=== PATIENT | male | born 1940 | race Caucasian/White ===

== ENCOUNTER 2021-01-06 05:03 | Emergency (ER) | payer OTHER ==
[2021-01-06 05:28] VITALS: BMI 31.6
[2021-01-06 06:46] LABS: HEMOGLOBIN 15.9 GM/dL (11.7-16.9); MCH 28.3 pg (25.7-33.7); MCHC 33.2 g/dl (32.0-35.9); MEAN CELL VOLUME 85.2 fl (80-96); MEAN PLT VOLUME 8.2 fl (7.5-11.1); PLATELET COUNT 149 10^3/uL (134-434); RBC 5.64 M/mm3 (4.00-5.60); RDW 15.4 % (11.9-15.9); WHITE BLOOD COUNT 8.7 K/mm3 (4.0-10.0)
[2021-01-06 06:58] LABS: CHLORIDE 97 mmol/L (98-107); SODIUM 135 mmol/L (136-145)
[2021-01-06 07:02] LABS: BLOOD UREA NITROGEN 18.7 mg/dL (7-18); CALCIUM 9.3 mg/dL (8.5-10.1)
[2021-01-06 07:03] LABS: ANION GAP 9 MMOL/L (8-16); CO2 29 mmol/L (21-32); GLUCOSE,RANDOM 115 mg/dL (74-106)
[2021-01-06 07:06] LABS: CREATININE 1.5 mg/dL (0.55-1.3); SGOT/AST 18 U/L (15-37); SGPT/ALT 18 U/L (13-61)
[2021-01-06 07:07] LABS: BILIRUBIN,TOTAL 1.1 mg/dL (0.2-1); TOT PROT 7.8 g/dl (6.4-8.2)
[2021-01-06 07:09] LABS: ALK PHOS 103 U/L (45-117)
[2021-01-06 09:47] VITALS: BP 183/89; PULSE 69; TEMP 98
[2021-01-06] MEDS ORDERED: LACTATED RINGERS SOLUTION 1000 ML INFUS.BAG IV ONE (12:00)
[2021-01-06 13:11] LABS: URINE APPEARANCE CLEAR; URINE BILIRUBIN NEGATIVE (NEGATIVE); URINE COLOR YELLOW; URINE GLUCOSE (UA) NEGATIVE (NEGATIVE); URINE KETONE NEGATIVE (NEGATIVE); URINE LEUK ESTERASE NEGATIVE (NEGATIVE); URINE NITRITE NEGATIVE (NEGATIVE); URINE PROTEIN NEGATIVE (NEGATIVE); URINE UROBILINOGEN 0.2 mg/dL (0.2-1.0)
== END 2021-01-06 14:51 | disposition home or self-care (01) ==
LOC: JER 05:03
DX: K59.01 Slow transit constipation (principal)
CPT/HCPCS: 36415; 74177-TC; 80053; 81003; 84484; 85027; 87086; 93005; 93010; 99284-25; Q9967